=== PATIENT | male | born 1935 | race Caucasian/White ===

== ENCOUNTER → 2017-09-10 | Outpatient (CLI) | payer OTHER ==
[~2017-09-10] MED LIST: ALEVE220 M2 PO; ASCORBIC ACID100 MG PO; ASPIR-LOW81 MG PO; ASPIRIN EC325 MG PO; ATORVASTATIN CA40 MG PO; CINNAMON500 MG PO; FISH OIL 1,2001 EAC4 PO; FOLIC ACID0.8 M1 PO; FOLIC ACID1 MG PO; GABAPENTIN100 MG PO; GABAPENTIN300 MG PO; LISINOPRIL20 MG PO; METFORMIN HCL500 MG PO; METOPROLOL SUC100 MG PO; METOPROLOL SUCC25 MG PO; MULTI-VITAMIN1 EAC4 PO; NITROSTAT0.3 MG SL; NORVASC10 MG PO; PAIN RELIEVER TP; PRAVACHOL80 MG PO; TYLENOL EXTRA500 MG PO
[2017-09-12 12:16] LABS: Flow Clinical Information LYMPHOCYTOSIS (()); Flow Number of Markers 22 (()); Flow Spec Viability 58 % (())
== END | disposition home or self-care (01) ==
LOC: OPR 08:00 → EDSTATUS 08:00 → OPR 08:02
PROVIDERS: Internal Medicine Hematology & Oncology
PROC: 07DC3ZX Extraction of Pelvis Lymphatic, Percutaneous Approach, Diagnostic (ICD-10-PCS; principal; 2017-09-10)
DX: R59.0 Localized enlarged lymph nodes (principal); Z85.51 Personal history of malignant neoplasm of bladder; Z85.46 Personal history of malignant neoplasm of prostate; E11.9 Type 2 diabetes mellitus without complications; I10 Essential (primary) hypertension; Z87.891 Personal history of nicotine dependence
CPT/HCPCS: 77012; 82948; 88305; 88341 TC; 88342 TC